=== PATIENT | female | born 1970 | race Caucasian/White ===

== ENCOUNTER 2016-11-22 09:06 | Emergency (ER) | payer SELFPAY ==
[2016-11-22 09:15] VITALS: BP 137/93
== END 2016-11-22 10:56 | disposition home or self-care (01) ==
LOC: ED 09:06
DX: K12.2 Cellulitis and abscess of mouth (principal); F41.0 Panic disorder [episodic paroxysmal anxiety]; J32.9 Chronic sinusitis, unspecified
CPT/HCPCS: J7512; Q0092